=== PATIENT | female | born 1980 | race Caucasian/White ===

== ENCOUNTER 2018-01-10 08:08 | Emergency (ER) | payer MEDICAID ==
[~2018-01-10] VITALS: Ht 162.6 cm; Wt 139.2 kg
[2018-01-10 08:13] VITALS: Ht 162.6 cm; Wt 139.2 kg
[2018-01-10 09:16] VITALS: BP 159/94
== END 2018-01-10 09:10 | disposition home or self-care (01) ==
LOC: ED 08:08
DX: S02.5XXA Fracture of tooth (traumatic), initial encounter for closed fracture (principal); X58.XXXA Exposure to other specified factors, initial encounter; Y93.89 Activity, other specified; Y92.89 Other specified places as the place of occurrence of the external cause; Y99.8 Other external cause status

== ENCOUNTER 2018-07-09 09:45 | Emergency (ER) | payer MEDICAID ==
[~2018-07-09] VITALS: Ht 167.6 cm; Wt 132.9 kg
[2018-07-09 10:08] VITALS: Ht 167.6 cm; Wt 132.9 kg
[2018-07-09 10:48] VITALS: BP 150/107
== END 2018-07-09 10:48 | disposition home or self-care (01) ==
LOC: ED 09:45
DX: J02.9 Acute pharyngitis, unspecified (principal)

== ENCOUNTER 2019-02-22 12:51 | Emergency (ER) | payer MEDICAID ==
[~2019-02-22] VITALS: Ht 162.6 cm; Wt 130.2 kg
[2019-02-22 12:55] VITALS: Ht 162.6 cm; Wt 130.2 kg
[2019-02-22 14:08] LABS: CARBON DIOXIDE 27.3 mmol/L (21-32); CHLORIDE SERUM 110 mmol/L (98-107); CREATININE SERUM 0.8 mg/dL (0.6-1.0); GFR1 > 60 mL/min; GLUCOSE SERUM 94 mg/dL (74-106); POTASSIUM SERUM 3.8 mmol/L (3.5-5.1); SODIUM SERUM 148 mmol/L (136-145)
[2019-02-22 14:11] LABS: BASOPHIL % 0.4 % (0-2); PLATELET COUNT 301 x10^3mcL (130-400); RED CELL DISTRIBUTION WIDTH 12.2 % (11.5-14.5)
[2019-02-22 14:21] LABS: ALKALINE PHOSPHATASE 84 U/L (46-116); ALT/SGPT 25 U/L (14-59); AST/SGOT 10 U/L (15-37); BILIRUBIN TOTAL 0.75 mg/dL (0.20-1.00); CHOLESTEROL 138 mg/dL (<200); HDL CHOLESTEROL 55 mg/dL (40-60); LIPASE 35 IU/L (73-393); MAGNESIUM 1.8 mg/dL (1.8-2.4); T4(THYROXINE) 7.1 ug/dL (4.7-13.3); TOTAL PROTEIN, SERUM 7.7 g/dL (6.4-8.2)
[2019-02-22 14:24] LABS: UA SPECIFIC GRAVITY 1.025 (1.005-1.035); microscopic required? YES; urine erythrocyte NEGATIVE (NEGATIVE)
[2019-02-22 14:26] LABS: ALBUMIN 3.3 g/dL (3.4-5.0)
[2019-02-22 15:24] LABS: AMPHETAMINE QUAL UR NONE DETECTED (See below)
[2019-02-22 16:39] VITALS: BP 136/92
== END 2019-02-22 16:39 | disposition home or self-care (01) ==
LOC: ED 12:51
PROVIDERS: Emergency Medicine
DX: I10 Essential (primary) hypertension (principal); F41.9 Anxiety disorder, unspecified; N39.0 Urinary tract infection, site not specified; E66.01 Morbid (severe) obesity due to excess calories; Z68.42 Body mass index [BMI] 45.0-49.9, adult; Z85.3 Personal history of malignant neoplasm of breast; Z85.43 Personal history of malignant neoplasm of ovary
CPT/HCPCS: 36415; 82962; Q0092